=== PATIENT | male | born 1945 | race Caucasian/White ===

== ENCOUNTER 2017-10-13 14:47 | Emergency (ER) | payer MEDICARE ==
[2017-10-13 14:47] VITALS: BMI 29.9
[2017-10-13 14:54] VITALS: BP 150/89; PULSE 79; RESP 18; TEMP 97.9; O2SAT 100
--- NOTE | 2017-10-13 15:57 | ED PDOC ---
HPI: Skin/Bite Injury Time Seen by Provider: 10/13/17 14:52 Chief Complaint (Nursing): Abnormal Skin Integrity Chief Complaint (Provider): Rash History Per: Patient History/Exam Limitations: no limitations Onset/Duration Of Symptoms: Days (3x) Current Symptoms Are (Timing): Still Present Location Of Injury: Right: Chest Additional Complaint(s): 72 year old male presents to the ED for an evaluation of rash on his chest. Patient states he developed pruritic rash on the right side of his chest 3 days ago. Denies recent illness, stressors, chest pain, numbness, tingling, shortness of breath or headache. PMD: No Family Provider Past Medical History Reviewed: Historical Data, Nursing Documentation, Vital Signs Vital Signs: Last Vital Signs Temp 97.9 F 10/13/17 14:52 Pulse 79 10/13/17 14:52 Resp 18 10/13/17 14:52 BP 150/89 10/13/17 14:52 Pulse Ox 100 10/13/17 16:48 - Medical History PMH: HTN Denies: Chronic Kidney Disease - Family History Family History: States: Unknown Family Hx - Social History Current smoker - smoking cessation education provided: No Alcohol: None Drugs: Denies - Home Medications Home Medications: Ambulatory Orders Medication Instructions Recorded Benazepril HCl [Lotensin] 10 mg PO DAILY 02/07/16 Glimepiride [amaRYL] 2 mg PO DAILY 02/07/16 MetFORMIN [glucOPHAGE] 1,000 mg PO BID 02/07/16 Omeprazole 20 mg PO DAILY 02/07/16 amLODIPine [Norvasc] 10 mg PO DAILY 02/07/16 Acyclovir 400 mg PO TID #21 tablet 10/13/17 Acyclovir 5% [Zovirax 5% Oint] 1 applic EXT Q3H #1 tube 10/13/17 - Allergies Allergies/Adverse Reactions: Allergies Allergy/AdvReac Type Severity Reaction Status Date / Time No Known Allergies Allergy Verified 10/13/17 14:51 Review of Systems ROS Statement: Except As Marked, All Systems Reviewed And Found Negative Constitutional: Negative for: Fever Cardiovascular: Negative for: Chest Pain Respiratory: Negative for: Shortness of Breath Skin: Positive for: Rash (right side of chest) Neurological: Negative for: Headache Physical Exam - Reviewed Nursing Documentation Reviewed: Yes Vital Signs Reviewed: Yes - Physical Exam Appears: Positive for: Non-toxic, No Acute Distress Head Exam: Positive for: ATRAUMATIC, NORMAL INSPECTION, NORMOCEPHALIC Skin: Positive for: Dry (no lymphadenopathy). Negative for: Normal Color ( scattered multiple vesicles on erythematous space on right side of chest extending to the right side of axilla) Eye Exam: Positive for: Normal appearance Cardiovascular/Chest: Positive for: Regular Rate, Rhythm. Negative for: Murmur Respiratory: Positive for: Normal Breath Sounds. Negative for: Respiratory Distress Neurologic/Psych: Positive for: Alert, Oriented (x3) - ECG O2 Sat by Pulse Oximetry: 100 (RA) Pulse Ox Interpretation: Normal Medical Decision Making Medical Decision Making: Time: 1452 Initial Impression: rash Clinical Impression: shingles Upon provider evaluation patient is medically stable, and requires no further treatment in the ED at this time. Patient will be discharged with Acyclovir 400mg and Zovirax 5% Oint for shingles. Counseling was provided and all questions were answered regarding diagnosis and need for follow up with [facility]. There is agreement to discharge plan. Return if symptoms persist or worsen. Scribe Attestation: Documented by Fanta Box, acting as a scribe for Moreno Carlin PA-C. Provider Scribe Attestation: All medical record entries made by the Scribe were at my direction and personally dictated by me. I have reviewed the chart and agree that the record accurately reflects my personal performance of the history, physical exam, medical decision making, and the department course for this patient. I have also personally directed, reviewed, and agree with the discharge instructions and disposition. Disposition - Clinical Impression Clinical Impression: Shingles - Patient ED Disposition Is Patient to be Admitted: No - Disposition Referrals: [facility] [Outside] Disposition: Routine/Home Disposition Time: 15:20 Condition: STABLE Additional Instructions: HOLLY FORTUNE, thank you for letting us take care of you today. Your provider was Billy Gary MD and you were treated for SKIN RASH. The emergency medical care you received today was directed at your acute symptoms. If you were prescribed any medication, please fill it and take as directed. It may take several days for your symptoms to resolve. Return to the Emergency Department if your symptoms worsen, do not improve, or if you have any other problems. Please contact your doctor or call one of the physicians/clinics you have been referred to that are listed on the Patient Visit Information form that is included in your discharge packet. Bring any paperwork you were given at discharge with you along with any medications you are taking to your follow up visit. Our treatment cannot replace ongoing medical care by a primary care provider outside of the emergency department. Thank you for allowing the [facility] team to be part of your care today. If you had an X-Ray or CT scan: A Radiologist will review the ED reading if any change in treatment is needed we will contact you. If you had a blood, urine, or wound culture: It will take several days for the results, if any change in treatment is needed we will contact you. If you had an STI test: It will take 48 hours for the results. Please call after 1 week if you have not heard back. Prescriptions: Acyclovir 400 mg PO TID #21 tablet Acyclovir 5% [Zovirax 5% Oint] 1 applic EXT Q3H #1 tube Instructions: Bruna (DC) Forms: [employer] (Occitan) Print Language: YI
== END 2017-10-13 15:33 | disposition home or self-care (01) ==
LOC: H.ER 14:47
DX: B02.9 Zoster without complications (principal); I10 Essential (primary) hypertension

== ENCOUNTER 2018-08-12 13:23 | Observation (INO) | payer MEDICARE, MEDICAID ==
[2018-08-12 13:24] VITALS: BMI 29.9
[2018-08-12 14:26] LABS: BASO # 0.1 K/uL (0.0-0.2); BASO % 0.6 % (0.0-2.0); EOS % 0.2 % (0.0-4.0); HEMOGLOBIN 13.6 g/dL (12.0-18.0); LYMPH # 1.2 K/uL (1.0-4.3); LYMPH % 12.7 % (20.0-40.0); MEAN CELL VOLUME 93.6 fl (80.0-94.0); MEAN CORPUSCULAR HEMOGLOBIN 31.1 pg (27.0-31.0); MEAN CORPUSCULAR HGB CONC 33.3 g/dL (33.0-37.0); MEAN PLATELET VOLUME 7.9 fl (7.2-11.7); MONO # 0.5 K/uL (0.0-0.8); MONO % 5.1 % (0.0-10.0); NEUT # 7.4 K/uL (1.8-7.0); NEUT % 81.4 % (50.0-75.0); NRBC % 0.1 % (0.0-0.0); RBC 4.36 Mil/uL (4.40-5.90); RED CELL DISTRIBUTION WIDTH 14.2 % (11.5-14.5); WHITE BLOOD COUNT 9.1 K/uL (4.8-10.8)
[2018-08-12 14:36] LABS: PROTHROMBIN TIME 11.9 Seconds (9.8-13.1)
[2018-08-12 14:37] LABS: BLOOD UREA NITROGEN 17 mg/dl (9-20); CALCIUM 9.1 mg/dL (8.4-10.2); GFR NON-AFRICAN AMERICAN > 60
[2018-08-12 14:39] LABS: PARTIAL THROMBOPLASTIN TIME 27.9 Seconds (25.6-37.1)
[2018-08-12 14:39] LABS: VENOUS BLOOD GAS PCO2 40 mmHg (40-60); VENOUS BLOOD GAS PO2 39 mm/Hg (30-55); VENOUS BLOOD PH 7.37 (7.32-7.43)
--- NOTE | 2018-08-12 14:50 | ED PDOC ---
Syncope/Near Syncope/Dizziness Time Seen by Provider: 08/12/18 13:49 Chief Complaint (Nursing): Syncope Chief Complaint (Provider): Syncope History Per: Patient History/Exam Limitations: no limitations Current Symptoms Are (Timing): Still Present Seizure Or Post-ictal Symptoms: None Additional Complaint(s): 73yo male, wit history of type 2 diabetes, hypertension, comes to ER for evaluation s/p syncope. Patient states he is compliant with his medications. He states 1 hour ago, he had a 10 minute episode of severe dizziness after which he had a syncopal episode. Patient was unconscious for a couple minutes, and the episode was witnessed by his . He currently denies any headache, weakness, or other neurological deficits. He had an episode of vomiting today during the dizziness episode but denies any persistent vomiting. No chest pain or shortness of breath. No additional complaints. NIHSS Stroke Scale - Date/Time Evaluation Performed Date Performed: 08/12/18 Time Performed: 14:00 When Was NIHSS Performed: Baseline - How Severe is the Stroke Level of Consciousness: 0=Alert LOC to Questions: 0=Both comments correct LOC to commands: 0=Obeys both correctly Best Gaze: 0=Normal Visual: 0=No visual loss Facial: 0=Normal Motor Arm - Left: 0=No drift Motor Arm - Right: 0=No drift Motor Leg - Left: 0=No drift Motor Leg - Right: 0=No drift Limb Ataxia: 0=Absent Sensory: 0=Normal Best Language: 0=No aphasia Dysarthia: 0=Normal articulation Extinction & Inattention (Neglect): 0=Normal, no object Score: 0 Past Medical History Reviewed: Historical Data, Nursing Documentation, Vital Signs Vital Signs: Last Vital Signs Temp 98.8 F 08/12/18 13:27 Pulse 117 H 08/12/18 13:27 Resp 18 08/12/18 13:27 BP 147/91 H 08/12/18 13:27 Pulse Ox 97 08/12/18 13:27 Primary Care Provider: Jordan Whitaker - Medical History PMH: Diabetes, HTN Denies: Chronic Kidney Disease - Surgical History Surgical History: No Surg Hx - Family History Family History: States: Unknown Family Hx - Social History Current smoker - smoking cessation education provided: No Alcohol: None Drugs: Denies - Home Medications Home Medications: Ambulatory Orders Medication Instructions Recorded MetFORMIN [glucoPHAGE] 1,000 mg PO BID 02/07/16 Omeprazole 20 mg PO DAILY 02/07/16 amLODIPine [Norvasc] 10 mg PO DAILY 02/07/16 Aspirin [Ecotrin] 81 mg PO DAILY 08/12/18 Cyanocobalamin [Vitamin B12 1000 1,000 mcg PO DAILY 08/12/18 mcg Tab] Glimepiride [amaRYL] 4 mg PO BID 08/12/18 Losartan [Cozaar] 50 mg PO DAILY 08/12/18 Tamsulosin [Flomax] 0.4 mg PO BID 08/12/18 - Allergies Allergies/Adverse Reactions: Allergies Allergy/AdvReac Type Severity Reaction Status Date / Time No Known Allergies Allergy Verified 10/13/17 14:51 Review of Systems ROS Statement: Except As Marked, All Systems Reviewed And Found Negative Cardiovascular: Negative for: Chest Pain Respiratory: Negative for: Shortness of Breath Gastrointestinal: Positive for: Vomiting Genitourinary Male: Negative for: Incontinence Neurological: Positive for: Dizziness, Other (syncope) Physical Exam - Reviewed Nursing Documentation Reviewed: Yes Vital Signs Reviewed: Yes - Physical Exam Appears: Positive for: Non-toxic, No Acute Distress Head Exam: Positive for: ATRAUMATIC, NORMAL INSPECTION, NORMOCEPHALIC Skin: Positive for: Normal Color Eye Exam: Positive for: Normal appearance, EOMI, PERRL Neck: Positive for: Normal, Supple Cardiovascular/Chest: Positive for: Regular Rate, Rhythm Respiratory: Positive for: Normal Breath Sounds. Negative for: Respiratory Distress Gastrointestinal/Abdominal: Positive for: Normal Exam, Soft Back: Positive for: Normal Inspection Extremity: Positive for: Normal ROM. Negative for: Pedal Edema Neurological/Psych: Positive for: Awake, Alert, Normal Tone - Laboratory Results Result Diagrams: 08/13/18 04:30 08/13/18 04:30 Lab Results: pO2 39 mm/Hg (30-55) 08/12/18 14:30 VBG pH 7.37 (7.32-7.43) 08/12/18 14:30 VBG pCO2 40 mmHg (40-60) 08/12/18 14:30 VBG HCO3 22.7 mmol/L 08/12/18 14:30 VBG Total CO2 24.3 mmol/L (22-28) 08/12/18 14:30 VBG O2 Sat (Calc) 77.1 % (40-65) H 08/12/18 14:30 VBG Base Excess -2.0 mmol/L (0.0-2.0) L 08/12/18 14:30 VBG Potassium 3.5 mmol/L (3.6-5.2) L 08/12/18 14:30 Sodium 138.0 mmol/L (132-148) 08/12/18 14:30 Chloride 105.0 mmol/L (98-107) 08/12/18 14:30 Glucose 197 mg/dL (75-110) H 08/12/18 14:30 Lactate 2.8 mmol/L (0.7-2.1) H 08/12/18 14:30 FiO2 21.0 % 08/12/18 14:30 PT 11.9 Seconds (9.8-13.1) 08/12/18 14:20 INR 1.0 08/12/18 14:20 APTT 27.9 Seconds (25.6-37.1) 08/12/18 14:20 - ECG O2 Sat by Pulse Oximetry: 97 (RA) Pulse Ox Interpretation: Normal Medical Decision Making Medical Decision Makinyo w/ syncope Workup with labs, head CT and reassessment. 1530 CT Head FINDINGS: HEMORRHAGE: No intracranial hemorrhage. BRAIN: No mass effect or edema. Area of encephalomalacia watershed area right frontal parietal region. 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 Underlying cortical atrophy noted. VENTRICLES: Unremarkable. No hydrocephalus. CALVARIUM: Unremarkable. PARANASAL SINUSES: Unremarkable as visualized. No significant inflammatory changes. MASTOID AIR CELLS: Unremarkable as visualized. No inflammatory changes. OTHER FINDINGS: None. IMPRESSION: No acute intracranial abnormalities. No significant findings to account for the clinical presentation. Additional benign and/or incidental findings described above. 1601 Labs reviewed, mildly elevated blood sugar level Cardiac labs normal Case discussed with family practice resident. Patient to be admitted under Dr. Whitaker for observation Plan of admission discussed with patient and family, who are agreeable. 1610 CXR FINDINGS: LUNGS: There is mild crowding at the lung bases. No appreciable focal infiltrate is noted. PLEURA: No significant pleural effusion identified, no pneumothorax apparent. CARDIOVASCULAR: Aorta is mildly uncoiled with minor atherosclerotic calcification. Heart is enlarged. No pulmonary vascular congestion. OSSEOUS STRUCTURES: No significant abnormalities. VISUALIZED UPPER ABDOMEN: Normal. OTHER FINDINGS: None. IMPRESSION: Poor expiratory effort with mild crowding at the lung bases. 1600 Pt to be admitted for syncope workup. Spoke with FP resident for admission under Dr. Whitaker. Pt stable at this time. -- Scribe Attestation: Documented by Melissa Brush acting as a scribe for Meka Escalante MD. Provider Scribe Attestation: All medical record entries made by the Scribe were at my direction and personally dictated by me. I have reviewed the chart and agree that the record accurately reflects my personal performance of the history, physical exam, medical decision making, and the department course for this patient. I have also personally directed, reviewed, and agree with the discharge instructions and disposition. Disposition - Clinical Impression Clinical Impression: Syncope and collapse - Patient ED Disposition Is Patient to be Admitted: Yes - Disposition Disposition Time: 16:04 Condition: STABLE
--- NOTE | 2018-08-12 15:32 | CT ---
Date of service: 08/12/2018 PROCEDURE: CT HEAD WITHOUT CONTRAST. HISTORY: syncope COMPARISON: 11/15/2007. TECHNIQUE: Axial computed tomography images were obtained through the head/brain without intravenous contrast. Supplemental Coronal and Sagittal projections created and reviewed. Radiation dose: Total exam DLP = 1277.32 mGy-cm. This CT exam was performed using one or more of the following dose reduction techniques: Automated exposure control, adjustment of the mA and/or kV according to patient size, and/or use of iterative reconstruction technique. FINDINGS: HEMORRHAGE: No intracranial hemorrhage. BRAIN: No mass effect or edema. Area of encephalomalacia watershed area right frontal parietal region. 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 Underlying cortical atrophy noted. VENTRICLES: Unremarkable. No hydrocephalus. CALVARIUM: Unremarkable. PARANASAL SINUSES: Unremarkable as visualized. No significant inflammatory changes. MASTOID AIR CELLS: Unremarkable as visualized. No inflammatory changes. OTHER FINDINGS: None. IMPRESSION: No acute intracranial abnormalities. No significant findings to account for the clinical presentation. Additional benign and/or incidental findings described above.
--- NOTE | 2018-08-12 15:38 | CARD ---
APPROVED REPORT Date of service: 08/12/2018 EKG Measurement Heart [id number] <Conclusion> Sinus tachycardia with premature atrial complexes Poor R wave progression in Precordial leads Abnormal ECG
--- NOTE | 2018-08-12 16:07 | RAD ---
Date of service: 08/12/2018 HISTORY: possible admission COMPARISON: 11/13/2007 TECHNIQUE: 1 view obtained. FINDINGS: LUNGS: There is mild crowding at the lung bases. No appreciable focal infiltrate is noted. PLEURA: No significant pleural effusion identified, no pneumothorax apparent. CARDIOVASCULAR: Aorta is mildly uncoiled with minor atherosclerotic calcification. Heart is enlarged. No pulmonary vascular congestion. OSSEOUS STRUCTURES: No significant abnormalities. VISUALIZED UPPER ABDOMEN: Normal. OTHER FINDINGS: None. IMPRESSION: Poor expiratory effort with mild crowding at the lung bases.
--- NOTE | 2018-08-12 16:34 | CP.PCM.HP ---
History of Present Illness - History of Present Illness History of Present Illness: 73 yo male with medical history of type 2 diabetes, hypertension, BPH presented to the ER s/p syncope. History is provided by patient and who witnessed the event. Patient reports that they were eating lunch, at 1pm, when he suddenly felt dizziness and fainted. Dizziness is described as the room spinning. states that the patient did not fall or hit his head but loss consciousness for about 20 minutes. Patient reports after he regained consciousness, he began vomiting, NBNB, about 6 times since the event. denies shaking of limbs, urinary or fecal incontinence. Patient denies angina, dypsnea, headaches, fevers , chills, recent URI, palpitations, dysuria, frequency or urgency. ROS negative except for stated above in HPI PMD: Dr. Whitaker Medications: see med rec Medical history: type 2 DM (NIDDM), HTN, BPH, GERD Social: denies smoking history, alcohol use and illicit drug use. Family history: non-contributory Surgical history: denies ED: Tachycardic otherwise vital signs stable. CBC CMP VBG Troponin CT head: No acute intracranial abnormalities. No significant findings to account for the clinical presentation. CXRAY of lungs: Poor expiratory effort with mild crowding at the lung bases. Present on Admission - Present on Admission Any Indicators Present on Admission: No Past Patient History - Past Medical History & Family History Past Medical History?: Yes - Past Social History Alcohol: None Drugs: Denies - CARDIAC Hx Hypertension: Yes - PULMONARY Hx Respiratory Disorders: No - NEUROLOGICAL Hx Neurological Disorder: No - HEENT Hx HEENT Problems: No - RENAL Hx Chronic Kidney Disease: No - ENDOCRINE/METABOLIC Hx Endocrine Disorders: Yes Hx Diabetes Mellitus Type 2: Yes - HEMATOLOGICAL/ONCOLOGICAL Hx Blood Disorders: No - INTEGUMENTARY Hx Dermatological Problems: No - MUSCULOSKELETAL/RHEUMATOLOGICAL Hx Musculoskeletal Disorders: No - GASTROINTESTINAL Hx Gastrointestinal Disorders: No - GENITOURINARY/GYNECOLOGICAL Hx Genitourinary Disorders: No - PSYCHIATRIC Hx Psychophysiologic Disorder: No Hx Emotional Abuse: No Hx Physical Abuse: No Hx Substance Use: No - SURGICAL HISTORY Hx Surgeries: Yes Hx Herniorrhaphy: Yes - ANESTHESIA Hx Anesthesia: Yes Hx Anesthesia Reactions: No Hx Malignant Hyperthermia: No Meds Allergies/Adverse Reactions: Allergies Allergy/AdvReac Type Severity Reaction Status Date / Time No Known Allergies Allergy Verified 10/13/17 14:51 Physical Exam - Constitutional Appears: Non-toxic, No Acute Distress - Head Exam Head Exam: NORMAL INSPECTION - Eye Exam Eye Exam: Normal appearance - ENT Exam ENT Exam: Mucous Membranes Moist, Normal Exam, Normal External Ear Exam, Normal Oropharynx, TM's Normal Bilaterally - Neck Exam Neck exam: Positive for: Normal Inspection. Negative for: Lymphadenopathy, Tenderness, Thyromegaly - Respiratory Exam Respiratory Exam: Clear to Auscultation Bilateral, NORMAL BREATHING PATTERN. absent: Accessory Muscle Use, Chest Wall Tenderness, Decreased Breath Sounds, Prolonged Expiratory Phase, Rales, Rhonchi, Wheezes, Respiratory Distress, Stridor - Cardiovascular Exam Cardiovascular Exam: Tachycardia, REGULAR RHYTHM, +S1, +S2 - GI/Abdominal Exam GI & Abdominal Exam: Distended, Normal Bowel Sounds, Soft. absent: Firm, Guarding, Rebound, Rigid, Tenderness - Extremities Exam Extremities exam: Positive for: normal capillary refill, normal inspection, pedal pulses present. Negative for: calf tenderness, pedal edema, tenderness - Neurological Exam Neurological exam: Alert, Oriented x3 Additional comments: 5/5 strength in all extremities. Sensation intact and equal bilaterally. - Psychiatric Exam Psychiatric exam: Normal Affect, Normal Mood - Skin Skin Exam: Dry, Intact, Normal Color, Warm Results - Vital Signs Recent Vital Signs: Last Vital Signs Temp 98.8 F 08/12/18 13:27 Pulse 103 H 08/12/18 16:14 Resp 16 08/12/18 16:14 BP 131/78 08/12/18 16:14 Pulse Ox 95 08/12/18 16:14 - Labs Result Diagrams: 08/12/18 14:20 08/12/18 14:20 Labs: Laboratory Results - last 24 hr 08/12/18 08/12/18 08/12/18 13:51 14:20 14:20 WBC 9.1 D RBC 4.36 L Hgb 13.6 Hct 40.8 MCV 93.6 MCH 31.1 H MCHC 33.3 RDW 14.2 Plt Count 246 MPV 7.9 Neut % (Auto) 81.4 H Lymph % (Auto) 12.7 L Murray % (Auto) 5.1 Eos % (Auto) 0.2 Baso % (Auto) 0.6 Neut # (Auto) 7.4 H Lymph # (Auto) 1.2 Murray # (Auto) 0.5 Eos # (Auto) 0.0 Baso # (Auto) 0.1 PT INR APTT pO2 VBG pH VBG pCO2 VBG HCO3 VBG Total CO2 VBG O2 Sat (Calc) VBG Base Excess VBG Potassium Glucose Lactate FiO2 Sodium 138 Potassium 3.8 Chloride 102 Carbon Dioxide 23 Anion Gap 17 BUN 17 Creatinine 0.8 Est GFR ( Amer) > 60 Est GFR (Non-Af Amer) > 60 POC Glucose (mg/dL) 214 H Random Glucose 204 H Calcium 9.1 Troponin I < 0.0120 Venous Blood Potassium 08/12/18 08/12/18 14:20 14:30 WBC RBC Hgb Hct MCV MCH MCHC RDW Plt Count MPV Neut % (Auto) Lymph % (Auto) Murray % (Auto) Eos % (Auto) Baso % (Auto) Neut # (Auto) Lymph # (Auto) Murray # (Auto) Eos # (Auto) Baso # (Auto) PT 11.9 INR 1.0 APTT 27.9 pO2 39 VBG pH 7.37 VBG pCO2 40 VBG HCO3 22.7 VBG Total CO2 24.3 VBG O2 Sat (Calc) 77.1 H VBG Base Excess -2.0 L VBG Potassium 3.5 L Glucose 197 H Lactate 2.8 H FiO2 21.0 Sodium 138.0 Potassium Chloride 105.0 Carbon Dioxide Anion Gap BUN Creatinine Est GFR ( Amer) Est GFR (Non-Af Amer) POC Glucose (mg/dL) Random Glucose Calcium Troponin I Venous Blood Potassium 3.5 L Assessment & Plan - Assessment and Plan (Free Text) Assessment: 73 yo male with medical history of type 2 diabetes, hypertension, BPH presented to the ER s/p syncope admitted for observation and further evaluation of syncope. Plan: 1. Syncope - admit to telemetry - hemodynamically stable - tachycardic - CT head: no acute findings - Neurology consult appreciated- Dr. Pearl - Echo - Carotid doppler - Troponin x1 negative- follow second troponin - Nausea: Zofran prn - NPO given vomitus; advance diet as tolerated - F/U TSH - f/u lipid panel - f/u procalcitonin - F/U CBC and BMP am 2. NIDDM - Chronic - Glucose: 204 - insulin sliding scale - hypoglycemia protocol - ACHS - F/U HgA1C - Metformin on hold - Glimipiride not on formulary- Glipizide XL 5mg daily 3. Hypertension - chronic - controlled -c/w home medication- Norvasc 10 mg daily, losartan 50mg daily 4. BPH - continue with tamsulosin 0.4mg BID 5. GERD - Given NPO as patient has been vomiting- Protonix 40mg IVP DVT prophylaxis - SCDs and lovenox GI prophylaxis: - Protonix 40mg IVP
[2018-08-12] MEDS ORDERED: Dextrose 50% SYRINGE Inj (50 ml) IV PRN (17:03)
[2018-08-12] MEDS ORDERED: Glucagon Recombinant 1 mg Inj IM PRN (17:03)
[2018-08-12] MEDS: Sodium Chloride 0.9% 1,000 ML IV SCH (18:39)
[2018-08-12] MEDS: GlipiZIDE 10 mg SR Tab PO SCH (19:18)
[2018-08-12] MEDS: Insulin Lispro (humaLOG) 100 Units/ml Inj SC SCH (22:55)
[2018-08-13 06:04] LABS: HEMOGLOBIN 12.4 g/dL (12.0-18.0); MEAN CELL VOLUME 93.4 fl (80.0-94.0); MEAN CORPUSCULAR HEMOGLOBIN 31.4 pg (27.0-31.0); MEAN CORPUSCULAR HGB CONC 33.6 g/dL (33.0-37.0); RBC 3.96 Mil/uL (4.40-5.90); RED CELL DISTRIBUTION WIDTH 14.5 % (11.5-14.5); WHITE BLOOD COUNT 6.6 K/uL (4.8-10.8)
[2018-08-13 06:27] LABS: BLOOD UREA NITROGEN 15 mg/dl (9-20); CALCIUM 8.6 mg/dL (8.4-10.2); GFR NON-AFRICAN AMERICAN > 60; HDL CHOLESTEROL 44 MG/DL (30-70)
[2018-08-13 06:38] LABS: LDL CHOLESTEROL 108 mg/dL (0-129)
[2018-08-13] MEDS: Enoxaparin 40 mg Syringe SC SCH (11:23)
[2018-08-13] MEDS: GlipiZIDE 10 mg SR Tab PO SCH ×2 (11:24→17:53)
[2018-08-13] MEDS: Insulin Lispro (humaLOG) 100 Units/ml Inj SC SCH ×4 (11:26→21:22)
--- NOTE | 2018-08-13 11:27 | CP.PCM.PN ---
Subjective - Date & Time of Evaluation Date of Evaluation: 08/13/18 Time of Evaluation: 11:27 - Subjective Subjective: Patient seen and examined at bedside on rounds. Patient reports feeling well without any dizziness. Denies angina, dypsnea, abdominal pain, nausea, vomiting or diarrhea. No acute events overnight. No events on the spread cutter over night and this morning. Objective - Vital Signs/Intake and Output Vital Signs (last 24 hours): Temp Pulse Resp BP Pulse Ox 97.6 F 74 20 149/76 96 08/13/18 07:49 08/13/18 11:24 08/13/18 07:49 08/13/18 11:24 08/13/18 07:49 - Medications Medications: Current Medications Amlodipine Besylate (Norvasc) 10 mg PO DAILY [facility] Last Admin: 08/13/18 11:22 Dose: 10 mg Aspirin (Ecotrin) 81 mg PO DAILY [facility] Last Admin: 08/13/18 10:11 Dose: 81 mg Cyanocobalamin (Vitamin B12 1000 Mcg Tab) 1,000 mcg PO DAILY [facility] Last Admin: 08/13/18 11:22 Dose: 1,000 mcg Dextrose (Dextrose 50% Inj) 0 ml IV STAT PRN; Protocol PRN Reason: Hypoglycemia Protocol Dextrose (Glutose 15) 0 gm PO ONCE PRN; Protocol PRN Reason: Hypoglycemia Protocol Enoxaparin Sodium (Lovenox) 40 mg SC DAILY [facility]; Protocol Last Admin: 08/13/18 11:23 Dose: 40 mg Glipizide (Glucotrol Xl) 10 mg PO BIDWM [facility] Last Admin: 08/13/18 11:24 Dose: 10 mg Glucagon (Glucagen Diagnostic Kit) 0 mg IM STAT PRN; Protocol PRN Reason: Hypoglycemia Protocol Sodium Chloride (Sodium Chloride 0.9%) 1,000 mls @ 80 mls/hr IV .[id number] [facility] Last Admin: 08/12/18 18:39 Dose: 80 mls/hr Insulin Human Lispro (Humalog) 0 units SC ACHS [facility]; Protocol Last Admin: 08/13/18 11:26 Dose: Not Given Losartan Potassium (Cozaar) 50 mg PO DAILY [facility] Last Admin: 08/13/18 11:24 Dose: 50 mg Ondansetron HCl (Zofran Inj) 4 mg IVP Q6 PRN PRN Reason: Nausea/Vomiting Pantoprazole Sodium (Protonix Inj) 40 mg IVP DAILY [facility] Last Admin: 08/12/18 18:39 Dose: 40 mg Tamsulosin HCl (Flomax) 0.4 mg PO BID [facility] Last Admin: 08/13/18 11:23 Dose: 0.4 mg - Labs Labs: 08/13/18 04:30 08/13/18 04:30 PT 11.9 Seconds (9.8-13.1) 08/12/18 14:20 INR 1.0 08/12/18 14:20 APTT 27.9 Seconds (25.6-37.1) 08/12/18 14:20 - Constitutional Appears: Non-toxic, No Acute Distress - ENT Exam ENT Exam: Mucous Membranes Moist - Respiratory Exam Respiratory Exam: Clear to Ausculation Bilateral, NORMAL BREATHING PATTERN. absent: Accessory Muscle Use, Chest Wall Tenderness, Decreased Breath Sounds, Prolonged Expiratory Phase, Rales, Rhonchi, Wheezes, Respiratory Distress, Stridor - Cardiovascular Exam Cardiovascular Exam: REGULAR RHYTHM, +S1, +S2 - GI/Abdominal Exam GI & Abdominal Exam: Soft, Normal Bowel Sounds. absent: Distended, Firm, Guarding, Rigid, Tenderness, Rebound - Extremities Exam Extremities Exam: Normal Capillary Refill, Normal Inspection. absent: Calf Tenderness, Pedal Edema, Tenderness - Neurological Exam Neurological Exam: Alert, Awake, Oriented x3 - Psychiatric Exam Psychiatric exam: Normal Affect, Normal Mood - Skin Skin Exam: Dry, Intact, Normal Color, Warm Assessment and Plan - Assessment and Plan (Free Text) Assessment: 73 yo male with medical history of type 2 diabetes, hypertension, BPH presented to the ER s/p syncope admitted for observation and further workup for syncope Plan: 1. Syncope - No tele events on the monitor overnight - CT head: no acute findings - Cardiology consult - Echo - pending read - Carotid doppler -pending read - Troponin x2 negative - tolerating PO intake - TSH: 1.01 - F/U CBC and BMP am 2. NIDDM - Chronic - Glucose: 148 - insulin sliding scale - hypoglycemia protocol - ACHS - F/U HgA1C - Metformin on hold - Glimipiride not on formulary- Glipizide XL 5mg daily 3. Hypertension - chronic - controlled -c/w home medication- Norvasc 10 mg daily, losartan 50mg daily 4. BPH - continue with tamsulosin 0.4mg BID DVT prophylaxis - SCDs and lovenox GI prophylaxis: - Protonix 40mg IVP
--- NOTE | 2018-08-13 12:20 | US ---
Date of service: 08/13/2018 PROCEDURE: Duplex ultrasound of the carotid and vertebral arteries. HISTORY: syncope COMPARISON: 02/13/2009. TECHNIQUE: Grayscale and duplex Doppler evaluation of the cervical carotid and vertebral arteries were performed. The common carotid, carotid bifurcations and cervical ICA and proximal ECA were evaluated. The vertebral arteries were evaluated for gross patency and direction. FINDINGS: RIGHT CAROTID ARTERIES: Common Carotid Artery: Maximal flow velocity of 100.0 cm/s. Carotid Bifurcation: Intimal thickening is present Internal Carotid Artery:Heterogeneous plaque formation. tortuous ICA Maximal flow velocity of 75.3 cm/s. External Carotid Artery (proximal branches): Maximal flow velocity of 80.8 cm/s. ICA/CCA Ratio: 0.8 LEFT CAROTID ARTERIES: Common Carotid Artery: Maximal flow velocity of 97.5 cm/s. Carotid Bifurcation: Intimal thickening is present Internal Carotid Artery:Heterogeneous plaque formation. tortuous ICA Maximal flow velocity of 130.0 cm/s. External Carotid Artery (proximal branches): Maximal flow velocity of 68.2 cm/s. ICA/CCA Ratio: 1.0 VERTEBRAL ARTERIES: Right Vertebral Artery: Patent. Antegrade flow. Left Vertebral Artery: Patent. Antegrade flow. OTHER FINDINGS: Atherosclerotic calcification present. IMPRESSION: Right ICA degree of stenosis: Less than 50% Left ICA degree of stenosis: 50-69 % Reference Internal Carotid Artery (ICA) Peak Systolic Velocity (PSV) for above: 1. Less than 50% stenosis less than 125 cm/s peak systolic velocity 2. 50-69% stenosis 125-230cm/s peak systolic velocity 3. Greater than 70% but less than near occlusion greater than 230 cm/s peak systolic velocity
--- NOTE | 2018-08-13 13:39 | CP.PCM.CON ---
History of Present Illness - History of Present Illness History of Present Illness: Neurology consult dictated. Mr Siu has a normal neurological exam and is now free of vertigo. Primary team has ordered MRI MRA which is appropriate. IF normal, may be sent home with VNG out patient. DR. monreal Neurology Past Patient History - Past Medical History & Family History Past Medical History?: Yes - Past Social History Smoking Status: Never Smoked - CARDIAC Hx Cardiac Disorders: Yes Hx Hypertension: Yes - PULMONARY Hx Respiratory Disorders: No - NEUROLOGICAL Hx Neurological Disorder: No - HEENT Hx HEENT Problems: No - RENAL Hx Chronic Kidney Disease: No - ENDOCRINE/METABOLIC Hx Endocrine Disorders: Yes Hx Diabetes Mellitus Type 2: Yes - HEMATOLOGICAL/ONCOLOGICAL Hx Blood Disorders: No - INTEGUMENTARY Hx Dermatological Problems: Yes Other/Comment: fatty superficial deposits on face and back removed surgically - MUSCULOSKELETAL/RHEUMATOLOGICAL Hx Musculoskeletal Disorders: Yes Hx Falls: Yes (x2 in apox 6 months) - GASTROINTESTINAL Hx Gastrointestinal Disorders: No - GENITOURINARY/GYNECOLOGICAL Hx Genitourinary Disorders: No - PSYCHIATRIC Hx Psychophysiologic Disorder: No - SURGICAL HISTORY Hx Surgeries: Yes Hx Herniorrhaphy: Yes Other/Comment: superficial "fatty deposit" removals, on face and back - ANESTHESIA Hx Anesthesia: Yes Hx Anesthesia Reactions: No Hx Malignant Hyperthermia: No Meds Allergies/Adverse Reactions: Allergies Allergy/AdvReac Type Severity Reaction Status Date / Time No Known Allergies Allergy Verified 10/13/17 14:51 - Medications Medications: Current Medications Amlodipine Besylate (Norvasc) 10 mg PO DAILY [facility] Last Admin: 08/13/18 11:22 Dose: 10 mg Aspirin (Ecotrin) 81 mg PO DAILY [facility] Last Admin: 08/13/18 10:11 Dose: 81 mg Cyanocobalamin (Vitamin B12 1000 Mcg Tab) 1,000 mcg PO DAILY [facility] Last Admin: 08/13/18 11:22 Dose: 1,000 mcg Dextrose (Dextrose 50% Inj) 0 ml IV STAT PRN; Protocol PRN Reason: Hypoglycemia Protocol Dextrose (Glutose 15) 0 gm PO ONCE PRN; Protocol PRN Reason: Hypoglycemia Protocol Enoxaparin Sodium (Lovenox) 40 mg SC DAILY [facility]; Protocol Last Admin: 08/13/18 11:23 Dose: 40 mg Glipizide (Glucotrol Xl) 10 mg PO BIDWM [facility] Last Admin: 08/13/18 11:24 Dose: 10 mg Glucagon (Glucagen Diagnostic Kit) 0 mg IM STAT PRN; Protocol PRN Reason: Hypoglycemia Protocol Sodium Chloride (Sodium Chloride 0.9%) 1,000 mls @ 80 mls/hr IV .[id number] [facility] Last Admin: 08/12/18 18:39 Dose: 80 mls/hr Insulin Human Lispro (Humalog) 0 units SC ACHS [facility]; Protocol Last Admin: 08/13/18 11:27 Dose: 3 units Losartan Potassium (Cozaar) 50 mg PO DAILY [facility] Last Admin: 08/13/18 11:24 Dose: 50 mg Ondansetron HCl (Zofran Inj) 4 mg IVP Q6 PRN PRN Reason: Nausea/Vomiting Pantoprazole Sodium (Protonix Inj) 40 mg IVP DAILY [facility] Last Admin: 08/13/18 11:28 Dose: 40 mg Tamsulosin HCl (Flomax) 0.4 mg PO BID [facility] Last Admin: 08/13/18 11:23 Dose: 0.4 mg Results - Vital Signs Recent Vital Signs: Last Vital Signs Temp 98.3 F 08/13/18 12:06 Pulse 84 08/13/18 12:06 Resp 20 08/13/18 12:06 BP 149/87 08/13/18 12:06 Pulse Ox 95 08/13/18 12:06 - Labs Result Diagrams: 08/13/18 04:30 08/13/18 04:30 Labs: Laboratory Results - last 24 hr 08/12/18 08/12/18 08/12/18 13:51 14:20 14:20 WBC 9.1 D RBC 4.36 L Hgb 13.6 Hct 40.8 MCV 93.6 MCH 31.1 H MCHC 33.3 RDW 14.2 Plt Count 246 MPV 7.9 Neut % (Auto) 81.4 H Lymph % (Auto) 12.7 L [place] % (Auto) 5.1 Eos % (Auto) 0.2 Baso % (Auto) 0.6 Neut # (Auto) 7.4 H Lymph # (Auto) 1.2 [place] # (Auto) 0.5 Eos # (Auto) 0.0 Baso # (Auto) 0.1 PT INR APTT pO2 VBG pH VBG pCO2 VBG HCO3 VBG Total CO2 VBG O2 Sat (Calc) VBG Base Excess VBG Potassium Glucose Lactate FiO2 Sodium 138 Potassium 3.8 Chloride 102 Carbon Dioxide 23 Anion Gap 17 BUN 17 Creatinine 0.8 Est GFR ( Amer) > 60 Est GFR (Non-Af Amer) > 60 POC Glucose (mg/dL) 214 H Random Glucose 204 H Hemoglobin A1c Calcium 9.1 Troponin I < 0.0120 Triglycerides Cholesterol LDL Cholesterol Direct HDL Cholesterol TSH 3rd Generation Venous Blood Potassium 08/12/18 08/12/18 08/12/18 14:20 14:30 18:46 WBC RBC Hgb Hct MCV MCH MCHC RDW Plt Count MPV Neut % (Auto) Lymph % (Auto) [place] % (Auto) Eos % (Auto) Baso % (Auto) Neut # (Auto) Lymph # (Auto) [place] # (Auto) Eos # (Auto) Baso # (Auto) PT 11.9 INR 1.0 APTT 27.9 pO2 39 VBG pH 7.37 VBG pCO2 40 VBG HCO3 22.7 VBG Total CO2 24.3 VBG O2 Sat (Calc) 77.1 H VBG Base Excess -2.0 L VBG Potassium 3.5 L Glucose 197 H Lactate 2.8 H FiO2 21.0 Sodium 138.0 Potassium Chloride 105.0 Carbon Dioxide Anion Gap BUN Creatinine Est GFR ( Amer) Est GFR (Non-Af Amer) POC Glucose (mg/dL) 241 H Random Glucose Hemoglobin A1c Calcium Troponin I Triglycerides Cholesterol LDL Cholesterol Direct HDL Cholesterol TSH 3rd Generation Venous Blood Potassium 3.5 L 08/12/18 08/12/18 08/12/18 19:02 19:02 22:35 WBC RBC Hgb Hct MCV MCH MCHC RDW Plt Count MPV Neut % (Auto) Lymph % (Auto) [place] % (Auto) Eos % (Auto) Baso % (Auto) Neut # (Auto) Lymph # (Auto) [place] # (Auto) Eos # (Auto) Baso # (Auto) PT INR APTT pO2 VBG pH VBG pCO2 VBG HCO3 VBG Total CO2 VBG O2 Sat (Calc) VBG Base Excess VBG Potassium Glucose Lactate FiO2 Sodium Potassium Chloride Carbon Dioxide Anion Gap BUN Creatinine Est GFR ( Amer) Est GFR (Non-Af Amer) POC Glucose (mg/dL) Random Glucose Hemoglobin A1c 9.3 H Calcium Troponin I < 0.0120 Triglycerides Cholesterol LDL Cholesterol Direct HDL Cholesterol TSH 3rd Generation 1.01 Venous Blood Potassium 08/12/18 08/13/18 08/13/18 22:50 04:30 04:30 WBC 6.6 RBC 3.96 L Hgb 12.4 Hct 37.0 MCV 93.4 MCH 31.4 H MCHC 33.6 RDW 14.5 Plt Count 249 MPV Neut % (Auto) Lymph % (Auto) [place] % (Auto) Eos % (Auto) Baso % (Auto) Neut # (Auto) Lymph # (Auto) [place] # (Auto) Eos # (Auto) Baso # (Auto) PT INR APTT pO2 VBG pH VBG pCO2 VBG HCO3 VBG Total CO2 VBG O2 Sat (Calc) VBG Base Excess VBG Potassium Glucose Lactate FiO2 Sodium 139 Potassium 3.9 Chloride 106 Carbon Dioxide 26 Anion Gap 11 BUN 15 Creatinine 0.8 Est GFR ( Amer) > 60 Est GFR (Non-Af Amer) > 60 POC Glucose (mg/dL) 238 H Random Glucose 158 H Hemoglobin A1c Calcium 8.6 Troponin I Triglycerides 102 D Cholesterol 169 LDL Cholesterol Direct 108 HDL Cholesterol 44 TSH 3rd Generation Venous Blood Potassium 08/13/18 08/13/18 05:35 10:55 WBC RBC Hgb Hct MCV MCH MCHC RDW Plt Count MPV Neut % (Auto) Lymph % (Auto) [place] % (Auto) Eos % (Auto) Baso % (Auto) Neut # (Auto) Lymph # (Auto) [place] # (Auto) Eos # (Auto) Baso # (Auto) PT INR APTT pO2 VBG pH VBG pCO2 VBG HCO3 VBG Total CO2 VBG O2 Sat (Calc) VBG Base Excess VBG Potassium Glucose Lactate FiO2 Sodium Potassium Chloride Carbon Dioxide Anion Gap BUN Creatinine Est GFR ( Amer) Est GFR (Non-Af Amer) POC Glucose (mg/dL) 145 H 228 H Random Glucose Hemoglobin A1c Calcium Troponin I Triglycerides Cholesterol LDL Cholesterol Direct HDL Cholesterol TSH 3rd Generation Venous Blood Potassium
--- NOTE | 2018-08-13 18:04 | CARD ---
APPROVED REPORT Date of service: 08/13/2018 EXAM: Two-dimensional and M-mode echocardiogram with Doppler and color Doppler. Other Information Quality : GoodRhythm : NSR INDICATION Syncope 2D DIMENSIONS IVSd1.22 (0.7-1.1cm)LVDd5.37 (3.9-5.9cm) LVOT Diameter2.53 (1.8-2.4cm)PWd0.79 (0.7-1.1cm) IVSs1.21 (0.8-1.2cm)LVDs4.26 (2.5-4.0cm) FS (%) 20.6 %PWs1.41 (0.8-1.2cm) M-Mode DIMENSIONS Left Atrium (MM)3.59 (2.5-4.0cm)IVSd1.21 (0.7-1.1cm) Aortic Root3.56 (2.2-3.7cm)LVDd5.21 (4.0-5.6cm) Aortic Cusp Exc.2.15 (1.5-2.0cm)PWd1.38 (0.7-1.1cm) IVSs1.47 cmFS (%) 31 % LVDs3.59 (2.0-3.8cm)PWs1.71 cm Aortic Valve AoV Peak Beunrmrw710.0cm/sAoV VTI26.1cmAO Peak GR.7mmHg LVOT Peak Qirggvdn51.5cm/sLVOT VTI17.96cmAO Mean GR.4mmHg MIGUEL (VMAX)1.58kw5HBU (VTI)1.94cm2 Mitral Valve MV E Xgvoyfhd37.0cm/sMV DECEL [id number] A Lgvmbefy09.8cm/s MV OTE64mvE/A ratio0.7MVA (PHT)4.66cm2 TDI Lateral E' Peak V7.82cm/sMedial E' Peak V7.50cm/sE/Lateral E'6.8 E/Medial E'7.1 LEFT VENTRICLE The left ventricle is normal size. There is normal left ventricular wall thickness. The left ventricular systolic function is normal. The estimated ejection fraction is 55-60% No regional wall motion abnormalities noted.. Transmitral Doppler flow pattern is Grade I-abnormal relaxation pattern. No left ventricle thrombus noted on this study. There is no ventricular septal defect visualized. There is no left ventricular aneurysm. There is no mass noted in the left ventricle. RIGHT VENTRICLE The right ventricle is normal size. There is normal right ventricular wall thickness. The right ventricular systolic function is normal. ATRIA The left atrium is mildly dilated. The right atrium size is normal. The interatrial septum is intact with no evidence for an atrial septal defect. AORTIC VALVE The aortic valve is normal in structure. No aortic regurgitation is present. There is no aortic valvular stenosis. There is no aortic valvular vegetation. MITRAL VALVE The mitral valve is normal in structure. There is no evidence of mitral valve prolapse. There is no mitral valve stenosis. There is no mitral valve regurgitation noted. TRICUSPID VALVE The tricuspid valve is normal in structure. There is trace tricuspid valve regurgitation noted. RVSP is calculated at less than 20 mm Hg. There is no tricuspid valve prolapse or vegetation. There is no tricuspid valve stenosis. PULMONIC VALVE The pulmonary valve is normal in structure. There is no pulmonic valvular regurgitation. There is no pulmonic valvular stenosis. GREAT VESSELS The aortic root is normal in size. The ascending aorta is normal in size. The pulmonary artery is normal. The IVC is normal in size and collapses >50% with inspiration. PERICARDIAL EFFUSION There is no pericardial effusion. There is no pleural effusion. <Conclusion> The estimated ejection fraction is 55-60% Transmitral Doppler flow pattern is Grade I-abnormal relaxation pattern. The left atrium is mildly dilated. There is trace tricuspid valve regurgitation noted. RVSP is calculated at less than 20 mm Hg.
[2018-08-13] MEDS: Sodium Chloride 0.9% 1,000 ML IV SCH (21:24)
[2018-08-14 00:26] VITALS: RESP 18
--- NOTE | 2018-08-14 00:42 | CON ---
DATE: 08/13/2018 NEUROLOGY CONSULTATION CALLED BY: Dr. Escalante in the emergency room. HISTORY OF PRESENT ILLNESS: Mr. Siu is a 73-year-old male who was eating lunch with his family when he had a 10-minute episode of severe dizziness after which he felt diaphoretic with palpitations. No chest pain. He was altered for a couple of minutes during which time his eyes rolled to back of his head. He had no urinary incontinence, no aphasia, no weakness, and no headache. Apparently, this happened 6 months ago as well. The patient has a history of type 2 diabetes and hypertension. No history of stroke. REVIEW OF SYSTEMS: Today is negative for any complaints. PAST MEDICAL HISTORY: Diabetes type 2 and hypertension. PAST SURGICAL HISTORY: None. FAMILY HISTORY: Unknown. SOCIAL HISTORY: No alcohol. No tobacco. MEDICATIONS AT HOME: Benazepril, glimepiride, metformin, omeprazole, Norvasc, and acyclovir. PHYSICAL EXAMINATION: NEUROLOGIC: The patient is alert and oriented x3. Pupils equal, round, and reactive to light. Cranial nerves II-XII normal. EOMI. Speech is fluent. Mini-mental status 30/30, done in Czech. Motor 5/5 in upper and lower limbs bilaterally. Sensory is intact to fine touch, pin, position and vibration sense. Gait is normal. There is no ataxia. Dczkke-si-jyoj shows no dysmetria. LABORATORY DATA: Normal except for glucose, which is 204. Carotid ultrasound was done, which shows the following: Tortuous ICA, plaque formation. Right ICA less than 50% stenosis. Left ICA 69%. ASSESSMENT AND PLAN: A 73-year-old male with syncopal episodes by six months' duration. Recommend MRI and MRA of the brain, which had already been ordered. We will follow up and if above are normal and level of stenosis is within normal limits, he will be discharged home with followup . Clint Pearl MD
[2018-08-14] MEDS: Insulin Lispro (humaLOG) 100 Units/ml Inj SC SCH ×2 (06:50→12:32)
[2018-08-14] MEDS: Sodium Chloride 0.9% 1,000 ML IV SCH (06:50)
[2018-08-14] MEDS: GlipiZIDE 10 mg SR Tab PO SCH (08:39)
[2018-08-14] MEDS: Enoxaparin 40 mg Syringe SC SCH (08:40)
--- NOTE | 2018-08-14 11:27 | MRI ---
Date of service: 08/14/2018 PROCEDURE: MRI BRAIN WITHOUT CONTRAST HISTORY: syncope COMPARISON: 08/12/2018 TECHNIQUE: Multiplanar, multisequence MR images of the brain were obtained without intravenous contrast enhancement. FINDINGS: HEMORRHAGE: None DWI: No evidence of an acute or early subacute infarction. BRAIN PARENCHYMA: No mass effect or edema. There is focal encephalomalacia in the right frontal lobe VENTRICLES: Unremarkable. No hydrocephalus. CRANIUM: Unremarkable. ORBITS: Grossly unremarkable. PARANASAL SINUSES/MASTOIDS: Clear VASCULAR SYSTEM: Skull base flow voids intact. OTHER FINDINGS: None. IMPRESSION: No acute intracranial findings
--- NOTE | 2018-08-14 11:29 | MRI ---
Date of service: 08/14/2018 PROCEDURE: Magnetic Resonance Angiography Brain HISTORY: syncope COMPARISON: None available. TECHNIQUE: 3D time of flight MR angiography of the intracranial arteries was performed. Rotating maximum intensity projection images were generated. FINDINGS: INTERNAL CAROTID ARTERIES: Unremarkable. The skull base, petrous, cavernous and supraclinoid segments are bilaterally widely patient. ANTERIOR CEREBRAL ARTERIES: Unremarkable. A1 and A2 segments are widely patent. Smaller distal branches unremarkable, as visualized. MIDDLE CEREBRAL ARTERIES: Unremarkable. M1 and M2 segments are widely patent. Perisylvian branches grossly symmetric. POSTERIOR CIRCULATION: Basilar Artery: Unremarkable. Distal Vertebral Arteries: Unremarkable. Posterior Cerebral Arteries: Unremarkable. Posterior Inferior Cerebellar Arteries: Unremarkable. ANEURYSM/ VASCULAR MALFORMATIONS: None. OTHER FINDINGS: None. IMPRESSION: Unremarkable MR angiography of the brain.
[2018-08-14 11:50] VITALS: BP 159/84; PULSE 87; TEMP 98.4
--- NOTE | 2018-08-14 12:12 | CP.PCM.CON ---
History of Present Illness - History of Present Illness History of Present Illness: 73 yo male with past medical history of diabetes mellitus and hypertension. Pt reports syncopal event after eating associated with nausea, diizziness and some vomiting post the syncopal event. No chest pain, shortness of breath or tach ycardia reported prior to episode. Baseline EKG is unremarkable. ECHO is normal. Telemetry reveals normal sinus rhythm with PACs. No tachy or etelvina arrythmic events noted. Past Patient History - Past Medical History & Family History Past Medical History?: Yes - Past Social History Smoking Status: Never Smoked - CARDIAC Hx Cardiac Disorders: Yes Hx Hypertension: Yes - PULMONARY Hx Respiratory Disorders: No - NEUROLOGICAL Hx Neurological Disorder: No - HEENT Hx HEENT Problems: No - RENAL Hx Chronic Kidney Disease: No - ENDOCRINE/METABOLIC Hx Endocrine Disorders: Yes Hx Diabetes Mellitus Type 2: Yes - HEMATOLOGICAL/ONCOLOGICAL Hx Blood Disorders: No - INTEGUMENTARY Hx Dermatological Problems: Yes Other/Comment: fatty superficial deposits on face and back removed surgically - MUSCULOSKELETAL/RHEUMATOLOGICAL Hx Musculoskeletal Disorders: Yes Hx Falls: Yes (x2 in apox 6 months) - GASTROINTESTINAL Hx Gastrointestinal Disorders: No - GENITOURINARY/GYNECOLOGICAL Hx Genitourinary Disorders: No - PSYCHIATRIC Hx Psychophysiologic Disorder: No - SURGICAL HISTORY Hx Surgeries: Yes Hx Herniorrhaphy: Yes Other/Comment: superficial "fatty deposit" removals, on face and back - ANESTHESIA Hx Anesthesia: Yes Hx Anesthesia Reactions: No Hx Malignant Hyperthermia: No Meds Allergies/Adverse Reactions: Allergies Allergy/AdvReac Type Severity Reaction Status Date / Time No Known Allergies Allergy Verified 10/13/17 14:51 - Medications Medications: Current Medications Amlodipine Besylate (Norvasc) 10 mg PO DAILY [facility] Last Admin: 08/14/18 08:41 Dose: 10 mg Aspirin (Ecotrin) 81 mg PO DAILY [facility] Last Admin: 08/14/18 08:40 Dose: 81 mg Cyanocobalamin (Vitamin B12 1000 Mcg Tab) 1,000 mcg PO DAILY [facility] Last Admin: 08/14/18 08:39 Dose: 1,000 mcg Dextrose (Dextrose 50% Inj) 0 ml IV STAT PRN; Protocol PRN Reason: Hypoglycemia Protocol Dextrose (Glutose 15) 0 gm PO ONCE PRN; Protocol PRN Reason: Hypoglycemia Protocol Enoxaparin Sodium (Lovenox) 40 mg SC DAILY [facility]; Protocol Last Admin: 08/14/18 08:40 Dose: 40 mg Glipizide (Glucotrol Xl) 10 mg PO BIDWM [facility] Last Admin: 08/14/18 08:39 Dose: 10 mg Glucagon (Glucagen Diagnostic Kit) 0 mg IM STAT PRN; Protocol PRN Reason: Hypoglycemia Protocol Sodium Chloride (Sodium Chloride 0.9%) 1,000 mls @ 80 mls/hr IV .[id number] [facility] Last Admin: 08/14/18 06:50 Dose: Not Given Insulin Human Lispro (Humalog) 0 units SC ACHS [facility]; Protocol Last Admin: 08/14/18 06:50 Dose: Not Given Losartan Potassium (Cozaar) 50 mg PO DAILY [facility] Last Admin: 08/14/18 08:40 Dose: 50 mg Ondansetron HCl (Zofran Inj) 4 mg IVP Q6 PRN PRN Reason: Nausea/Vomiting Pantoprazole Sodium (Protonix Inj) 40 mg IVP DAILY [facility] Last Admin: 08/14/18 08:41 Dose: 40 mg Tamsulosin HCl (Flomax) 0.4 mg PO BID [facility] Last Admin: 08/14/18 08:39 Dose: 0.4 mg Physical Exam - Constitutional Appears: Well - Head Exam Head Exam: NORMAL INSPECTION - Respiratory Exam Respiratory Exam: Clear to Auscultation Bilateral - Cardiovascular Exam Cardiovascular Exam: REGULAR RHYTHM - GI/Abdominal Exam GI & Abdominal Exam: Normal Bowel Sounds - Extremities Exam Extremities exam: Positive for: normal inspection Results - Vital Signs Recent Vital Signs: Last Vital Signs Temp 98.4 F 08/14/18 11:50 Pulse 87 08/14/18 11:50 Resp 18 08/14/18 11:50 BP 159/84 H 08/14/18 11:50 Pulse Ox 96 08/14/18 11:50 - Labs Result Diagrams: 08/13/18 04:30 08/13/18 04:30 Labs: Laboratory Results - last 24 hr 08/13/18 08/13/18 08/13/18 11:45 16:14 21:13 POC Glucose (mg/dL) 147 H 239 H Prolactin 15.4 08/14/18 05:37 POC Glucose (mg/dL) 150 H Prolactin Assessment & Plan - Assessment and Plan (Free Text) Assessment: Syncopal event with no clear cardiac etiology Cardiac evaluation is unremarkable Pt can be discharged and w/u pursued as outpatient
--- NOTE | 2018-08-14 13:42 | CP.PCM.DIS ---
Provider - Provider Date of Admission: 08/12/18 15:59 Attending physician: Jordan Whitaker MD Consults: 08/13/18 11:26 Cardiology Consult Routine Comment: Consulting Provider: Michael Avila Consulting Physician: Michael Avila Reason for Consult: Syncope Time Spent in preparation of Discharge (in minutes): 30 Diagnosis - Discharge Diagnosis (1) Syncope Status: Acute Comment: - CT head: no acute findings. - Cardiology consult - Dr. Avila- Patient can follow up as outpatient. - Echo - EF: 55-60%. - Carotid doppler -Right ICA: 50% and Left ICA: 55-60%. - Troponin x2 negative. - TSH: 1.01 (2) NIDDY (non-insulin dependent diabetes mellitus in young) Status: Acute Comment: - Chronic. - Continue home medications. - F/U HgA1C (3) Hypertension Status: Acute Comment: - chronic. - controlled. -c/w home medication- Norvasc 10 mg daily, losartan 50mg daily (4) BPH (benign prostatic hyperplasia) Status: Acute Comment: - continue with tamsulosin 0.4mg BID Hospital Course - Lab Results Lab Results: Most Recent Lab Values WBC 6.6 K/uL (4.8-10.8) 08/13/18 04:30 RBC 3.96 Mil/uL (4.40-5.90) L 08/13/18 04:30 Hgb 12.4 g/dL (12.0-18.0) 08/13/18 04:30 Hct 37.0 % (35.0-51.0) 08/13/18 04:30 MCV 93.4 fl (80.0-94.0) 08/13/18 04:30 MCH 31.4 pg (27.0-31.0) H 08/13/18 04:30 MCHC 33.6 g/dL (33.0-37.0) 08/13/18 04:30 RDW 14.5 % (11.5-14.5) 08/13/18 04:30 Plt Count 249 K/uL (130-400) 08/13/18 04:30 MPV 7.9 fl (7.2-11.7) 08/12/18 14:20 Neut % (Auto) 81.4 % (50.0-75.0) H 08/12/18 14:20 Lymph % (Auto) 12.7 % (20.0-40.0) L 08/12/18 14:20 [place] % (Auto) 5.1 % (0.0-10.0) 08/12/18 14:20 Eos % (Auto) 0.2 % (0.0-4.0) 08/12/18 14:20 Baso % (Auto) 0.6 % (0.0-2.0) 08/12/18 14:20 Neut # (Auto) 7.4 K/uL (1.8-7.0) H 08/12/18 14:20 Lymph # (Auto) 1.2 K/uL (1.0-4.3) 08/12/18 14:20 [place] # (Auto) 0.5 K/uL (0.0-0.8) 08/12/18 14:20 Eos # (Auto) 0.0 K/uL (0.0-0.7) 08/12/18 14:20 Baso # (Auto) 0.1 K/uL (0.0-0.2) 08/12/18 14:20 PT 11.9 Seconds (9.8-13.1) 08/12/18 14:20 INR 1.0 08/12/18 14:20 APTT 27.9 Seconds (25.6-37.1) 08/12/18 14:20 pO2 39 mm/Hg (30-55) 08/12/18 14:30 VBG pH 7.37 (7.32-7.43) 08/12/18 14:30 VBG pCO2 40 mmHg (40-60) 08/12/18 14:30 VBG HCO3 22.7 mmol/L 08/12/18 14:30 VBG Total CO2 24.3 mmol/L (22-28) 08/12/18 14:30 VBG O2 Sat (Calc) 77.1 % (40-65) H 08/12/18 14:30 VBG Base Excess -2.0 mmol/L (0.0-2.0) L 08/12/18 14:30 VBG Potassium 3.5 mmol/L (3.6-5.2) L 08/12/18 14:30 Sodium 138.0 mmol/L (132-148) 08/12/18 14:30 Chloride 105.0 mmol/L (98-107) 08/12/18 14:30 Glucose 197 mg/dL (75-110) H 08/12/18 14:30 Lactate 2.8 mmol/L (0.7-2.1) H 08/12/18 14:30 FiO2 21.0 % 08/12/18 14:30 Sodium 139 mmol/l (132-148) 08/13/18 04:30 Potassium 3.9 MMOL/L (3.6-5.0) 08/13/18 04:30 Chloride 106 mmol/L (98-107) 08/13/18 04:30 Carbon Dioxide 26 mmol/L (22-30) 08/13/18 04:30 Anion Gap 11 (-20) 08/13/18 04:30 BUN 15 mg/dl (9-20) 08/13/18 04:30 Creatinine 0.8 mg/dl (0.8-1.5) 08/13/18 04:30 Est GFR ( Amer) > 60 08/13/18 04:30 Est GFR (Non-Af Amer) > 60 08/13/18 04:30 POC Glucose (mg/dL) 150 mg/dL (65-110) H 08/14/18 05:37 Random Glucose 158 mg/dL (75-110) H 08/13/18 04:30 Hemoglobin A1c 9.3 % (4.2-6.5) H 08/12/18 19:02 Calcium 8.6 mg/dL (8.4-10.2) 08/13/18 04:30 Troponin I < 0.0120 ng/mL (0.00-0.120) 08/12/18 22:35 Triglycerides 102 mg/DL (0-149) D 08/13/18 04:30 Cholesterol 169 mg/dL (0-199) 08/13/18 04:30 LDL Cholesterol Direct 108 mg/dL (0-129) 08/13/18 04:30 HDL Cholesterol 44 MG/DL (30-70) 08/13/18 04:30 TSH 3rd Generation 1.01 mIU/ML (0.46-4.68) 08/12/18 19:02 Prolactin 15.4 ng/mL (3.7-17.9) 08/13/18 11:45 Venous Blood Potassium 3.5 mmol/L (3.6-5.2) L 08/12/18 14:30 - Hospital Course Hospital Course: 73 yo male with medical history of type 2 diabetes, hypertension, BPH presented to the ER s/p syncope admitted for observation and further workup for syncope. Patient was admitted to telemetry for observation. No telemetry events reported. MRI and MRA both negative. Carotid doppler: right ICA with 50% and left 50%-69%. ECHO: EF: 55-60%. Patient stable for discharge, continue home medications. Follo w up with Dr. Whitaker and Dr. Avila outpatient. Discharge Exam - Head Exam Head Exam: NORMAL INSPECTION - Eye Exam Eye Exam: Normal appearance - ENT Exam ENT Exam: Mucous Membranes Moist - Respiratory Exam Respiratory Exam: Clear to PA & Lateral, NORMAL BREATHING PATTERN, UNREMARKABLE. absent: Accessory Muscle Use, Chest Wall Tenderness, Decreased Breath Sounds, Prolonged Expiratory Phase, Rales, Rhonchi, Wheezes, Respiratory Distress, Stridor - Cardiovascular Exam Cardiovascular Exam: REGULAR RHYTHM, +S1, +S2 Discharge Plan - Follow Up Plan Condition: STABLE Disposition: HOME/ ROUTINE Patient education suggested?: Yes Instructions: Syncope (Fainting) (DC) Additional Instructions: lian melchor 1 semana Referrals: Jordan Whitaker MD [Family Provider] -
[2018-08-14 14:57] VITALS: O2SAT 97
== END 2018-08-14 14:00 | disposition home or self-care (01) ==
LOC: H.ER 13:23 → H.ERHOLD 15:59 → H.TEL 20:21
PROVIDERS: ADMIT Family Medicine; ATTEND Family Medicine
DX: R55 Syncope and collapse (principal); E11.65 Type 2 diabetes mellitus with hyperglycemia; N40.0 Benign prostatic hyperplasia without lower urinary tract symptoms; Z79.82 Long term (current) use of aspirin; Z79.84 Long term (current) use of oral hypoglycemic drugs; K21.9 Gastro-esophageal reflux disease without esophagitis; I10 Essential (primary) hypertension
CPT/HCPCS: 36415; 70450; 70544; 70551; 71045; 80048; 80061; 82803; 82948; 83036; 84146; 84443; 84484; 85025; 85027; 85610; 85730; 93005; 93306; 93880; 96374; 99285; C9113; G0378; J1650; J7030